=== PATIENT | male | born 1955 | race Caucasian/White ===

== ENCOUNTER 2018-09-12 07:51 | Day surgery (SDC) | payer OTHER ==
[2018-09-05 15:03] LABS: BASOPHILS % (AUTO) 0.3 % (0-1); EOSINOPHILS # (AUTO) 0.2 X10'3 (0-0.9); EOSINOPHILS % (AUTO) 3.1 % (0-6); LYMPHOCYTES # (AUTO) 1.4 X10'3 (1.1-4.8); LYMPHOCYTES % (AUTO) 23.5 % (21-51); MEAN CORPUSCULAR HEMOGLOBIN 31.2 PG (27.0-31.0); MEAN CORPUSCULAR HGB CONC 34.1 g/dL (33.0-36.5); MEAN CORPUSCULAR VOLUME 91.4 FL (78-98); MEAN PLATELET VOLUME 6.3 FL (7.4-10.4); MONOCYTES # (AUTO) 0.6 X10'3 (0-0.9); MONOCYTES % (AUTO) 10.6 % (2-12); NEUTROPHILS # (AUTO) 3.7 X10'3 (1.8-7.7); NEUTROPHILS % (AUTO) 62.5 % (42-75); PRE OP PLATELET COUNT 209 X10'3 (140-440); RED BLOOD COUNT 4.81 X10'6 (4.70-6.10); RED CELL DISTRIBUTION WIDTH 13.8 % (11.5-14.5)
[2018-09-05 15:19] LABS: HEMOGLOBIN A1C 7.4 % (4.5-6.2)
[2018-09-05 15:20] LABS: ALBUMIN 4.1 G/DL (3.4-5.0); ALBUMIN/GLOBULIN RATIO 1.4 (1.1-1.5); ALKALINE PHOSPHATASE 49 IU/L (46-116); BLOOD UREA NITROGEN 14 MG/DL (7-18); BUN/CREATININE RATIO 13.3 (5.4-32.0); CALCIUM 9.5 MG/DL (8.5-10.1); CHLORIDE 102 MMOL/L (99-107); CREATININE 1.05 MG/DL (0.60-1.10); PRE OP ALT 31 U/L (30-65); PRE OP ANION GAP 10 (8-16); PRE OP AST 19 U/L (10-37); PRE OP BILIRUB, TOTAL 0.4 MG/DL (0.0-1.0); PRE OP GLUCOSE 111 MG/DL (70-104); PRE OP POTASSIUM 3.9 MMOL/L (3.4-5.1); PRE OP SODIUM 140 MMOL/L (135-145); TOTAL CARBON DIOXIDE 28.2 MMOL/L (24-32); TOTAL PROTEIN 7.1 G/DL (6.4-8.2); eGFR 72 ML/MIN
[~2018-09-12] VITALS: Ht 177.8 cm; Wt 113.0 kg
[2018-09-12] VITALS (11 sets, daily range): BP systolic 103–132; BP diastolic 63–77
[~2018-09-12 07:51] MED LIST: BUPIVAcaine/PF 2.5mg/ml (0.25%) 10ml vial ONE; IBUP200C5 PO; LOSA25TA96 PO; METF500T PO; PIOG15TA8 PO; SERT25TA PO; SIMV20TA5 PO; cefazolin/dext.iso 2gm/50ml 50 ML IV ONE; famotidine 20mg tablet PO ONE; ringers solution, lacted 1,000 ML IV SCH
[2018-09-12] MEDS ORDERED: cloNIDine hcl/PF 100mcg/ml inj ONE (09:01)
[2018-09-12] MEDS ORDERED: ROPIVAcaine 0.5% (5mg/ml) 30ml vial ONE (09:01)
[2018-09-12] MEDS ORDERED: sevoflurane 250ml liquid IH ONE (09:02)
[2018-09-12] MEDS ORDERED: MIDAZolam 5mg/5ml vial ONE (09:04)
[2018-09-12] MEDS ORDERED: fentaNYL/PF 50MCG/1 ML 2ML syringe ONE (09:04)
[2018-09-12] MEDS ORDERED: ringers solution, lacted 1,000 ML IV SCH (10:24)
[2018-09-12] MEDS ORDERED: proCHLORperazine 10 MG/2 ml inj IV PRN (10:25)
[2018-09-12] MEDS ORDERED: meperidine/PF 25mg/ml syringe IV PRN ×3 (10:25)
[2018-09-12] MEDS ORDERED: morphine 4 MG/ML inj SYRINge IV PRN ×2 (10:25)
[2018-09-12] MEDS ORDERED: ondansetron/PF 4mg/2ml inj IV PRN (10:25)
[2018-09-12] MEDS ORDERED: propofol inj 20 ML IV ONE (11:31)
[2018-09-12] MEDS ORDERED: rocuronium 10mg/ml inj IV ONE (11:32)
[2018-09-12] MEDS ORDERED: glycopyrrolate 0.2mg/ml inj ONE (11:32)
[2018-09-12] MEDS ORDERED: neostigmine methylsulfate 1 MG/ML 10ml vial ONE (11:32)
[2018-09-12] MEDS ORDERED: HYDROcodone/acetaminophen 10/325mg tab PO PRN (11:40)
--- NOTE | 2018-09-12 11:40 | NUR ---
Received from OR via [facility] , accompanied by Anesthesiologist DR ADAME and report given by Anesthesiolgist. PT AROUSES EASILY, PT PLACED ON O2 AND MONITOR, S/P RIGHT SHOULDER REPAIR, GENERAL ANESTH, WITH SCALINE BLOCK, DENIES ANY PAIN OR NAUSEA, CAN MOVE FINGERS IN RIGHT HAND GOOD CAP REFILL BILAT HANDS, RIGHT SHOULDER DRSING CDI, PT SOMEWHAT RESTLESS, WILL CONT TO ASSESS.
--- NOTE | 2018-09-12 13:00 | NUR ---
PT DISCHARED TO HOME INSTRUCTIONS PER DR EARLY REVIEW BY PT AND BOTH STATING THEY RECIEVED INSTRUCTIONS FROM [facility] AND , SPOKE WITH DR EARLY POST SURGERY FOR ANY ADDITIONAL INSTRUCTIONS. STATES PAIN MEDS ARE ALREADY AT HOME. Addendum: 09/12/18 at 1330 by Maday Medel RN Amended: Links added.
== END 2018-09-12 13:00 | disposition home or self-care (01) ==
LOC: PAS 07:51
PROVIDERS: ATTEND Orthopaedic Surgery
DX: S46.011A Strain of muscle(s) and tendon(s) of the rotator cuff of right shoulder, initial encounter (principal); M75.41 Impingement syndrome of right shoulder; X58.XXXA Exposure to other specified factors, initial encounter; Y93.89 Activity, other specified; Y92.89 Other specified places as the place of occurrence of the external cause; Y99.8 Other external cause status; M75.51 Bursitis of right shoulder; M19.011 Primary osteoarthritis, right shoulder; Z79.899 Other long term (current) drug therapy; Z83.3 Family history of diabetes mellitus; Z82.49 Family history of ischemic heart disease and other diseases of the circulatory system; Z87.891 Personal history of nicotine dependence
CPT/HCPCS: 29824; 29826; 29827; 36415; 71046; 80053; 82948; 83036; 85025; 93005; A6449; C1713; J0690; J0735; J2250; J2704; J2710; J3010; J3490; J7120; A4565; A7000; J2795; J7030